=== PATIENT | female | born 1995 | race African-American/Black ===

== ENCOUNTER 2021-09-04 10:55 | Emergency (ER) | payer BC | END 2021-09-04 12:17 | disposition home or self-care (01) | LOC: JVIRT 10:55 | DX: Z11.52 Encounter for screening for COVID-19 (principal) | CPT/HCPCS: C9803; Q3014-GT; U0003; U0005 ==

== ENCOUNTER 2023-05-27 15:32 | Emergency (ER) | payer SELFPAY ==
[2023-05-27 15:46] VITALS: BP 138/91; PULSE 101; RESP 18; TEMP 98.2; BMI 24.7
[2023-05-27 16:14] LABS: BASO % 0.5 % (0-2.0); EOS % 3.2 % (0-4.5); HEMATOCRIT 33.3 % (32.4-45.2); HEMOGLOBIN 10.7 GM/dL (10.7-15.3); LYMPH % 24.9 % (8-40); MCH 23.3 pg (25.7-33.7); MEAN CELL VOLUME 72.9 fl (80-96); MEAN PLT VOLUME 8.9 fl (7.5-11.1); MONO % 7.5 % (3.8-10.2); NEUT % 63.9 % (42.8-82.8); PLATELET COUNT 335 10^3/uL (134-434); RBC 4.57 M/mm3 (3.60-5.2); RDW 13.9 % (11.6-15.6); WHITE BLOOD COUNT 6.5 K/mm3 (4.0-10.0)
[2023-05-27 16:23] LABS: HCG,QUALITATIVE URINE Negative
[2023-05-27 16:39] LABS: CHLORIDE 108 mmol/L (98-107); POTASSIUM 4.1 mmol/L (3.5-5.1); SODIUM 141 mmol/L (136-145)
[2023-05-27 16:41] LABS: ANION GAP 5 MMOL/L (8-16); BLOOD UREA NITROGEN 12.6 mg/dL (7-18); CALCIUM 8.8 mg/dL (8.5-10.1); CO2 29 mmol/L (21-32); GLUCOSE,RANDOM 103 mg/dL (74-106)
[2023-05-27 16:42] LABS: ALBUMIN 4.4 g/dl (3.4-5.0)
[2023-05-27 16:43] LABS: URINE APPEARANCE CLEAR; URINE BILIRUBIN NEGATIVE (NEGATIVE); URINE COLOR YELLOW; URINE GLUCOSE (UA) NEGATIVE (NEGATIVE); URINE KETONE TRACE (NEGATIVE)
[2023-05-27 16:44] LABS: CREATININE 0.9 mg/dL (0.55-1.3); PH,URINE 5.5 (5.0-8.0); SGOT/AST 13 U/L (15-37); SGPT/ALT 21 U/L (13-61); URINE LEUK ESTERASE NEGATIVE (NEGATIVE); URINE NITRITE NEGATIVE (NEGATIVE); URINE PROTEIN TRACE (NEGATIVE); URINE UROBILINOGEN 0.2 mg/dL (0.2-1.0)
[2023-05-27 16:46] LABS: BILIRUBIN,TOTAL 0.2 mg/dL (0.2-1)
[2023-05-27 16:47] LABS: ALK PHOS 56 U/L (45-117)
[2023-05-27 17:47] LABS: EPI CELLS 49.6 /uL (0-25.1); HYALINE CASTS 4.53 /uL (0-3.1); URINE BACTERIA 865.2 /uL (0-1359); URINE RBC 41.2 /uL (0-23.9); URINE WBC 73.6 /uL (0-25.8)
[2023-05-27 17:48] LABS: YEAST NONE SEEN (NEGATIVE)
== END 2023-05-27 17:46 | disposition home or self-care (01) ==
LOC: JER 15:32
DX: N93.9 Abnormal uterine and vaginal bleeding, unspecified (principal); R10.30 Lower abdominal pain, unspecified; M54.50 Low back pain, unspecified
CPT/HCPCS: 76830-TC; 80053; 81003; 84702; 84703; 85025; 86850; 86900; 86901; 87086; 99284-25